=== PATIENT | male | born 1980 | race Caucasian/White ===

== ENCOUNTER 2017-03-24 05:22 | Emergency (ER) | payer OTHER ==
[2017-03-24] MEDS ORDERED: ONDANSETRON ODT 4 MG TABLET TL STA (05:29)
[2017-03-24] MEDS ORDERED: KETOROLAC 60 MG/2 ML VIAL IM STA (05:29)
[2017-03-24] MEDS ORDERED: DEXAMETHASONE 10 MG/ML VIAL PO STA (05:29)
--- NOTE | 2017-03-24 05:41 | ED Physician Documentation ---
PD HPI URI - Stated complaint Stated Complaint: FEVER - Chief complaint Chief Complaint: Abd Pain - History obtained from History obtained from: Patient - History of Present Illness Timing - onset: Yesterday Timing details: Intermittant Associated symptoms: Fever, Chills, Sweats, Nasal congestion, Rhinorrhea, Sore throat, Dry cough Similar symptoms before: No diagnosis Recently seen: Not recently seen - Additional information Additional information: Patient is a 36 year old male with no significant past medical history who is presenting to the emergency department for fever, chills,, and uri symptoms. Patient states that he had a temperature of 100.5. Patient reports that if he tried to get an appointment on [facility] it would take too long and he would get more sick. Patient states that last night he had some sweats and some pain around his kidney area. Review of Systems Constitutional: reports: Fever, Chills, Myalgias Eyes: denies: Discharge, Irritation Ears: reports: Ear pain Nose: reports: Congestion Throat: reports: Sore throat Cardiac: denies: Chest pain / pressure, Palpitations GI: reports: Nausea, Vomiting : denies: Dysuria, Frequency Skin: denies: Rash, Lesions Musculoskeletal: reports: Extremity pain, Joint pain Neurologic: denies: Generalized weakness, Focal weakness, Headache Immunocompromised: denies: Immunocompromised PD PAST MEDICAL HISTORY - Past Medical History Cardiovascular: None Respiratory: None Neuro: None Endocrine/Autoimmune: None GI: None : None HEENT: None Psych: Depression, Post traumatic stress disorder Musculoskeletal: None Derm: None - Past Surgical History Past Surgical History: No - Present Medications Home Medications: Ambulatory Orders Medication Instructions Recorded Confirmed Ondansetron Odt [Zofran] 4 mg TL Q6H PRN #14 tablet 03/24/17 - Allergies Allergies/Adverse Reactions: Allergies Allergy/AdvReac Type Severity Reaction Status Date / Time No Known Drug Allergies Allergy Verified 03/24/17 05:30 - Social History Does the pt smoke?: No Smoking Status: Never smoker Does the pt drink ETOH?: Yes Does the pt have substance abuse?: No - Immunizations Immunizations are current?: Yes - POLST Patient has POLST: Yes PD ED PE NORMAL - General General: Alert and oriented X 3, No acute distress, Well developed/nourished - HEENT HEENT: Atraumatic, PERRL - Neck Neck: Supple, no meningeal sign - Cardiac Cardiac: RRR, No murmur - Respiratory Respiratory: No respiratory distress - Abdomen Abdomen: Soft, Non tender, Non distended - Derm Derm: Normal color, No rash - Extremities Extremities: No deformity - Neuro Neuro: Alert and oriented X 3, No motor deficit, No sensory deficit, Normal speech - Psych Psych: Normal mood PD ED PE EXPANDED - HEENT HEENT: Pharyngeal erythema. No: Tonsillar exudate, Soft palate petecchiae Results - Vitals Vitals: Vital Signs - 24 hr 03/24/17 05:27 Temperature 35.1 C L Heart Rate 65 Respiratory 18 Rate Blood Pressure 138/100 H O2 Saturation 97 Oxygen O2 Source Room air - Labs Labs: Laboratory Tests 03/24/17 05:00 Urine Color YELLOW Urine Clarity CLEAR Urine pH 6.0 Ur Specific [place] >=1.030 H Urine Protein NEGATIVE Urine Glucose (UA) NEGATIVE Urine Ketones NEGATIVE Urine Occult Blood NEGATIVE Urine Nitrite NEGATIVE Urine Bilirubin NEGATIVE Urine Urobilinogen 0.2 (NORMAL) Ur Leukocyte Esterase NEGATIVE Ur Microscopic Review NOT INDICATED Urine Culture Comments NOT INDICATED PD MEDICAL DECISION MAKING - ED course Complexity details: reviewed old records, reviewed results, re-evaluated patient , considered differential, d/w patient ED course: Patient was seen and examined at bedside. Patient was afebrile and non toxic appearing. Patient's urine was collected. patient was treated with toradol, decadron and zofran. Patient's symptoms were likely viral in nature. Patient required no further work up and was stable for discharge with outpatient follow up. Departure - Departure Disposition: 01 Home, Self Care Clinical Impression: Acute viral syndrome Condition: Good Instructions: ED Viral Syndrome Follow-Up: primary,care provider [Other] - Within 1 week Prescriptions: Ondansetron Odt [Zofran] 4 mg TL Q6H PRN #14 tablet PRN Reason: Nausea / Vomiting Comments: Your symptoms are likely viral in nature and self limited meaning it will get better over the next few days. You can take over the counter cold and flu medications and zofran for nausea. The two most important things are rest and oral hydration. You should drink at least 100oz of fluid a day. You should follow up with your doctor if your symptoms persist. You may return to the emergency department for new, worsening or uncontrollable symptoms. Forms: Activity restrictions
[2017-03-24] MEDS ORDERED: CHERRY SYRUP 10 ML UDC PO ONE (05:42)
[2017-03-24 05:45] LABS: BILIRUBIN,URINE NEGATIVE (NEGATIVE); GLUCOSE, URINE (UA) NEGATIVE (NEGATIVE); KETONES,URINE (UA) NEGATIVE (NEGATIVE); LEUKOCYTE ESTERASE, URINE NEGATIVE (NEGATIVE); NITRITE,URINE NEGATIVE (NEGATIVE); OCCULT BLOOD,URINE NEGATIVE (NEGATIVE); PROTEIN,URINE NEGATIVE (NEGATIVE); UROBILINOGEN,URINE 0.2 (NORMAL) E.U./dL (NORMAL)
[2017-03-24 05:46] LABS: CLARITY,URINE CLEAR (CLEAR)
[2017-03-24 06:05] VITALS: BP 139/91
== END 2017-03-24 06:05 | disposition home or self-care (01) ==
LOC: ED 05:22
DX: B34.9 Viral infection, unspecified (principal)
CPT/HCPCS: 81003; 96372; 99283; A9270; Q0162; 81001; 87086

== ENCOUNTER 2017-04-16 06:25 | Emergency (ER) | payer OTHER ==
[2017-04-16 06:31] VITALS: BP 167/94
[2017-04-16] MEDS ORDERED: SODIUM CHLORIDE 0.9% 1,000 ML IV ONE (06:39)
[2017-04-16] MEDS ORDERED: ONDANSETRON 4 MG/2 ML VIAL IVP STA (06:39)
--- NOTE | 2017-04-16 06:44 | ED Physician Documentation ---
PD HPI NVD - History obtained from History obtained from: Patient - History of Present Illness Timing - onset: How many days ago (3) Timing - details: Gradual onset, Still present Associated symptoms: No: Fever, Abdominal pain, Chest pain Contributing factors: No: Sick contact, Bad food, Travel, Recent antibiotics Similar symptoms before: No diagnosis Recently seen: Not recently seen - Stated complaint Stated Complaint: VOMITING/NAUSEA - Chief complaint Chief Complaint: Abd Pain - Additonal information Additional information: Patient is a 36 year old male with no significant past medical history who is presenting to the emergency department for nausea and vomiting. patient states that he has had episodes over the last month where he will get intermittently nauseated and throw up. patient denies any fevers, chills, muscle aches or diarrhea. Patient denies any marijuana use. (Doug Lopes) The patient reports having "heartburn" with associated nausea and episodes of dry heaving. He has noticed his symptoms are worse with supine position, and improved when upright. (Will Gonzalez) Review of Systems Constitutional: denies: Fever, Chills Eyes: denies: Decreased vision Ears: denies: Ear pain, Drainage/discharge Nose: denies: Congestion Throat: denies: Sore throat Cardiac: denies: Chest pain / pressure, Palpitations Respiratory: denies: Cough, Wheezing GI: reports: Nausea, Vomiting. denies: Abdominal Pain, Constipation, Diarrhea : denies: Dysuria, Frequency Skin: denies: Rash, Lesions Musculoskeletal: denies: Neck pain, Back pain Neurologic: denies: Generalized weakness, Focal weakness, Numbness, Headache Immunocompromised: denies: Immunocompromised PD PAST MEDICAL HISTORY - Past Medical History Cardiovascular: None Respiratory: None Neuro: None Endocrine/Autoimmune: None GI: None : None HEENT: None Psych: Depression, Post traumatic stress disorder Musculoskeletal: None Derm: None - Past Surgical History Past Surgical History: No - Social History Does the pt smoke?: No Smoking Status: Never smoker Does the pt drink ETOH?: Yes Does the pt have substance abuse?: No - Immunizations Immunizations are current?: Yes - POLST Patient has POLST: Yes - Present Medications Home Medications: Ambulatory Orders Medication Instructions Recorded Confirmed Ondansetron Odt [Zofran] 4 mg TL Q6H PRN #20 tablet 04/16/17 Promethazine [Phenergan] 25 mg PO Q6H PRN #14 tab 04/16/17 raNITIdine [Zantac] 150 mg PO BID #30 tablet 04/16/17 - Allergies Allergies/Adverse Reactions: Allergies Allergy/AdvReac Type Severity Reaction Status Date / Time No Known Drug Allergies Allergy Verified 04/16/17 06:31 PD ED PE NORMAL - Vitals Vital signs reviewed: Yes - General General: Alert and oriented X 3, No acute distress, Well developed/nourished - HEENT HEENT: Atraumatic, PERRL - Neck Neck: Supple, no meningeal sign, No JVD - Cardiac Cardiac: RRR, No murmur - Respiratory Respiratory: No respiratory distress - Abdomen Abdomen: Soft, Non tender, Non distended - Derm Derm: Normal color, Warm and dry, No rash - Extremities Extremities: No deformity, Normal ROM s pain, No calf tenderness / cord - Neuro Neuro: Alert and oriented X 3, No motor deficit, No sensory deficit, Normal speech - Psych Psych: Normal mood PD ED PE EXPANDED - HEENT HEENT: Dry mucous membranes - Vitals Vitals: Oxygen O2 Source Room air - Labs Labs: Laboratory Tests 04/16/17 04/16/17 06:40 06:40 WBC 4.9 RBC 5.49 Hgb 14.8 Hct 46.1 MCV 84.0 MCH 27.0 MCHC 32.2 RDW 14.2 Plt Count 223 MPV 7.8 Neut # 2.6 Lymph # 1.7 Blanco # 0.4 Eos # 0.3 Baso # 0.1 Absolute Nucleated RBC 0.00 Nucleated RBC % 0.0 Sodium 140 Potassium 4.3 Chloride 103 Carbon Dioxide 25 Anion Gap 12.0 BUN 11 Creatinine 1.0 Estimated GFR (MDRD) 85 L Glucose 107 H Calcium 8.8 Phosphorus 2.7 Magnesium 1.9 Total Bilirubin 0.7 AST 238 H ALT 101 H Alkaline Phosphatase 59 Total Protein 7.6 Albumin 4.3 Globulin 3.3 Albumin/Globulin Ratio 1.3 Lipase 21 L PD MEDICAL DECISION MAKING - ED course Complexity details: reviewed old records, reviewed results, re-evaluated patient , considered differential, d/w patient - ED course ED course: Patient was seen and examined at bedside. IV access was gained and labs were drawn. patient was treated with zofran and a liter bolus. patient was signed over to Dr. Gonzalez pending re-evaluation and disposition. (Doug Lopes) The patient's presentation is most consistent with gastroesophageal reflux disease. His presentation does not suggest pancreatitis, bowel obstruction, and I doubt biliary colic. CBC and chemistry panel are normal except for mildly elevated ALT and AST. Treatment in the emergency department included administration of normal saline 1 L IV and Zofran 4 mg IV on reexamination his abdomen is totally benign. I discussed with him the diagnosis, symptomatic treatment and outpatient follow-up , as well as potentially worrisome signs or symptoms that should prompt reevaluation in the emergency department. He is being discharged with prescriptions for ranitidine, Zofran, and Phenergan. (Will Gonzalez) Departure - Departure Disposition: 01 Home, Self Care Clinical Impression: Vomiting Qualifiers: Vomiting type: unspecified Vomiting Intractability: non-intractable Nausea presence: with nausea Qualified Code(s): R11.2 - Nausea with vomiting, unspecified Gastroesophageal reflux disease Qualifiers: Esophagitis presence: esophagitis presence not specified Qualified Code(s): K21.9 - Gastro-esophageal reflux disease without esophagitis Condition: Stable Instructions: ED GERD, ED Nausea Vomiting Follow-Up: primary,care provider [Other] - Within 3 Days Prescriptions: Ondansetron Odt [Zofran] 4 mg TL Q6H PRN #20 tablet PRN Reason: Nausea / Vomiting Promethazine [Phenergan] 25 mg PO Q6H PRN #14 tab PRN Reason: Nausea / Vomiting raNITIdine [Zantac] 150 mg PO BID #30 tablet Comments: Take ranitidine twice daily as prescribed. You can use liquid antacids, such as Maalox or Mylanta, if you develop recurrent symptoms. You can use Phenergan or Zofran as prescribed as needed for nausea. Follow up with your primary physician within 2 weeks. Call to schedule appointment. Return to the emergency department if you develop increasing abdominal pain, persistent vomiting, or otherwise worsening symptoms. Forms: Activity restrictions Discharge Date/Time: 04/16/17 09:02
[2017-04-16 07:09] LABS: BASOPHILS # (AUTO) 0.1 10^3/uL (0.0-0.1); BASOPHILS % (AUTO) 1.2 %; EOSINOPHILS # (AUTO) 0.3 10^3/uL (0.0-0.7); EOSINOPHILS % (AUTO) 5.1 %; HGB - HEMOGLOBIN 14.8 g/dL (14.0-18.0); LYMPHOCYTES # (AUTO) 1.7 10^3/uL (1.5-3.5); LYMPHOCYTES % (AUTO) 33.9 %; MEAN CORPUSCULAR HGB CONC 32.2 g/dL (32.0-36.0); MEAN PLATELET VOLUME 7.8 fL (7.4-11.4); MONOCYTES # (AUTO) 0.4 10^3/uL (0.0-1.0); MONOCYTES % (AUTO) 7.6 %; NEUTROPHILS # (AUTO) 2.6 10^3/uL (1.5-6.6); NEUTROPHILS % (AUTO) 52.2 %; PLT - PLATELET COUNT 223 10^3/uL (130-450); RED BLOOD COUNT 5.49 10^6/uL (4.70-6.10); RED CELL DISTRIBUTION WIDTH 14.2 % (12.0-15.0); WHITE BLOOD COUNT 4.9 x10^3/uL (4.8-10.8)
[2017-04-16 07:31] LABS: ALBUMIN 4.3 g/dL (3.2-5.5); ALBUMIN/GLOBULIN RATIO 1.3 (1.0-2.2); BILIRUBIN,TOTAL 0.7 mg/dL (0.2-1.0); CALCIUM 8.8 mg/dL (8.5-10.3); MAGNESIUM 1.9 mg/dL (1.7-2.8); PHOSPHORUS 2.7 mg/dL (2.5-4.6); TOTAL PROTEIN 7.6 g/dL (6.7-8.2)
== END 2017-04-16 09:02 | disposition home or self-care (01) ==
LOC: ED 06:25
DX: K21.9 Gastro-esophageal reflux disease without esophagitis (principal); R11.2 Nausea with vomiting, unspecified
CPT/HCPCS: 36415; 80053; 83690; 83735; 84100; 85025; 96374; 99283; 99284

== ENCOUNTER 2017-12-06 20:54 | Emergency (ER) | payer OTHER ==
[2017-12-06] MEDS ORDERED: HYDROcod/ACET 5/325 Prepack 4 PO STA (21:29)
--- NOTE | 2017-12-06 21:30 | ED Physician Documentation ---
PD HPI LOWER EXT INJURY - Stated complaint Stated Complaint: L KNEE PX - Chief complaint Chief Complaint: Ext Problem - History obtained from History obtained from: Patient - History of Present Illness PD HPI LOW EXT INJURY LOCATION: Left (This is a 37-year-old avid runner who developed knee pain after a half marathon recently. Is on the outside and the inside. More recently has had severe pain again without specific injury with swelling and inability to walk and it locking up on him.) Review of Systems Constitutional: reports: Reviewed and negative Cardiac: reports: Reviewed and negative Respiratory: reports: Reviewed and negative PD PAST MEDICAL HISTORY - Past Medical History Past Medical History: Yes Cardiovascular: None Respiratory: None Neuro: None Endocrine/Autoimmune: None GI: None : None HEENT: None Psych: Depression, Post traumatic stress disorder Musculoskeletal: None Derm: None - Past Surgical History Past Surgical History: No - Present Medications Home Medications: Ambulatory Orders Medication Instructions Recorded Confirmed Gabapentin 1 cap PO DAILY 12/06/17 12/06/17 Hydrocodone/Acetaminophen 1 - 2 each PO Q6H PRN #10 tablet 12/06/17 [Hydrocodon-Acetaminophen 5-325] Prazosin HCl 1 cap PO QPM 12/06/17 12/06/17 Trazodone HCl 1 tab PO QPM 12/06/17 12/06/17 Venlafaxine ER [Effexor ER] 150 mg PO DAILY 12/06/17 12/06/17 - Allergies Allergies/Adverse Reactions: Allergies Allergy/AdvReac Type Severity Reaction Status Date / Time No Known Drug Allergies Allergy Verified 12/06/17 21:03 - Social History Does the pt smoke?: No Smoking Status: Never smoker Does the pt drink ETOH?: Yes Does the pt have substance abuse?: No - Immunizations Immunizations are current?: Yes - POLST Patient has POLST: Yes PD ED PE NORMAL - Vitals Vital signs reviewed: Yes - General General: Alert and oriented X 3, No acute distress - Extremities Extremities: Other (Left knee has a moderate effusion. He is tender over the IT band laterally but also the MCL. ACL, PCL, MCL, LCL seem intact but he has a lot of pain with MCL testing.) - Neuro Neuro: Alert and oriented X 3, Normal speech Results - Vitals Vitals: Vital Signs - 24 hr 12/06/17 21:00 Temperature 36.0 C L Heart Rate 91 Respiratory 16 Rate Blood Pressure 140/84 H O2 Saturation 97 Oxygen O2 Source Room air - Rads (name of study) L knee 4v Radiology: EMP read contemporaneously (NAD) PD MEDICAL DECISION MAKING - ED course ED course: Clinically this seems like a combination of some IT band syndrome as well as potentially another internal derangement of the Left knee. Outpatient follow-up was advised. He was placed in a knee immobilizer. - Sepsis Event Vital Signs: Vital Signs - 24 hr 12/06/17 21:00 Temperature 36.0 C L Heart Rate 91 Respiratory 16 Rate Blood Pressure 140/84 H O2 Saturation 97 Oxygen O2 Source Room air Departure - Departure Disposition: Home, Self Care Clinical Impression: IT band syndrome Qualifiers: Laterality: left Qualified Code(s): M76.32 - Iliotibial band syndrome, left leg Medial collateral ligament sprain of knee Qualifiers: Encounter type: initial encounter Laterality: left Qualified Code(s): S83.412A - Sprain of medial collateral ligament of left knee, initial encounter Condition: Good Record reviewed to determine appropriate education?: Yes Instructions: ED Meniscal Injury Knee Poss Prescriptions: Hydrocodone/Acetaminophen [Hydrocodon-Acetaminophen 5-325] 1 - 2 each PO Q6H PRN #10 tablet PRN Reason: pain Comments: Call your doctor to arrange a follow-up appointment, make the next available appointment. In the interim, return anytime if worse or if new symptoms develop. Your blood pressure was elevated today on check into the emergency department. This does not mean that you have hypertension, it is a common phenomenon to come to the emergency department and have elevated blood pressure. I recommend that you see your primary care physician within the week to have it rechecked when you are feeling better.
--- NOTE | 2017-12-06 22:00 | XRAY Report ---
Reason: knee pain Procedure Date: 12/06/2017 Accession Number: [id number] / [id number] Procedure: XR - Knee 4 View LT CPT Code: FULL RESULT: EXAM: LEFT KNEE RADIOGRAPHY EXAM DATE: 12/06/2017 09:47 PM. CLINICAL HISTORY: Knee pain. Unable to bear weight. COMPARISON: None. TECHNIQUE: 4 views. FINDINGS: Bones: Normal. No fractures or bone lesions. Joints: Normal. No effusion. No subluxations. Soft Tissues: Unremarkable. IMPRESSION: Normal knee radiography. [facility]
[2017-12-06 22:16] VITALS: BP 129/69
== END 2017-12-06 22:16 | disposition home or self-care (01) ==
LOC: ED 20:54
DX: S83.412A Sprain of medial collateral ligament of left knee, initial encounter (principal); M76.32 Iliotibial band syndrome, left leg; X50.3XXA Overexertion from repetitive movements, initial encounter; Y93.02 Activity, running
CPT/HCPCS: 99283

== ENCOUNTER 2018-01-05 09:10 | Outpatient (CLI) | payer OTHER ==
--- NOTE | 2018-01-05 18:07 | MRI Report ---
Reason: PAIN IN LEFT KNEE Procedure Date: 01/05/2018 Accession Number: [id number] / [id number] Procedure: MRI - Knee LT W/O CPT Code: FULL RESULT: EXAM: LEFT KNEE MRI WITHOUT CONTRAST EXAM DATE: 01/05/2018 10:39 AM. CLINICAL HISTORY: Left knee pain. Previous injury. COMPARISON: KNEE 4 VIEW LT 12/06/2017 9:37 PM. TECHNIQUE: Multiplanar, multisequence T1-weighted and fluid-sensitive sequences of the knee without contrast. Other: None. FINDINGS: Bones and Articular Cartilage: Small marginal osteophytes at the medial femoral condyle. Small subcortical cyst at the posterior medial aspect of the lateral tibial plateau. There is an approximately 1.4 x 0.4 cm full-thickness articular cartilage defect at the inferior aspect of the lateral patellar facet. Subchondral marrow edema at the lateral patellar facet. Small subcortical cysts and marrow edema at the median ridge of the patella. Grade 2-3 chondromalacia at the superior lateral aspect of the lateral trochlear facet. The lateral trochlear inclination angle is approximately 10 degrees, which is below normal. Slight lateral subluxation of the patella by approximately 3 mm. Focal grade 3-4 chondromalacia and subchondral osteophyte at the posterior aspect of the lateral tibial plateau. Medial Meniscus: The medial meniscus is intact. Lateral Meniscus: The lateral meniscus is intact. Cruciate Ligaments: The anterior and posterior cruciate ligaments are intact. Collateral Ligaments: The medial collateral and lateral collateral ligamentous structures are intact. Tendons: The quadriceps, patellar, semimembranosus, and popliteus tendons are unremarkable. Musculature: No edema or fatty atrophy. Other: No effusion. No popliteal cyst. There is an approximately 4 x 5 x 5 mm loose body within the posterior lateral aspect of the medial compartment. The medial and lateral retinacula are intact. The subcutaneous tissues and fat pads are unremarkable. IMPRESSION: 1. 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 Slight lateral subluxation of the patella by approximately 3 mm. 3. Focal grade 3-4 chondromalacia and subchondral osteophyte at the posterior aspect of the lateral tibial plateau. 4. No ligament or meniscal injury. 5. A 4 x 5 x 5 mm loose body within the posterior lateral aspect of the medial compartment. [facility]
== END 2018-01-05 09:11 | disposition home or self-care (01) ==
LOC: DI 09:10
PROVIDERS: ATTEND Student in an Organized Health Care Education/Training Program
DX: M94.262 Chondromalacia, left knee (principal); S83.012A Lateral subluxation of left patella, initial encounter; M23.42 Loose body in knee, left knee; M25.862 Other specified joint disorders, left knee

== ENCOUNTER 2018-01-19 14:19 | Outpatient (CLI) | payer OTHER ==
--- NOTE | 2018-01-20 11:45 | MRI Report ---
Reason: PAIN IN LEFT FINGERS, WRIST PAIN Procedure Date: 01/19/2018 Accession Number: [id number] / [id number] Procedure: MRI - Wrist LT W/O CPT Code: FULL RESULT: EXAM: LEFT WRIST MRI WITHOUT CONTRAST EXAM DATE: 01/19/2018 02:57 PM. CLINICAL HISTORY: Pain at the left wrist and base of the thumb. COMPARISON: None. TECHNIQUE: Multiplanar, multisequence T1-weighted and fluid-sensitive sequences of the wrist without contrast. Other: None. FINDINGS: Some of the images are degraded due to patient-related motion artifact. Bones: No fractures or subluxations. No marrow edema. No bone lesions. Cartilage: The articular cartilage is unremarkable. The triangular fibrocartilage complex is unremarkable. Ligaments: The scapholunate and lunotriquetral ligaments are intact. The visualized other intrinsic, extrinsic and collateral ligaments are unremarkable. Tendons: The extensor compartment I through and flexor tendons are unremarkable. Musculature: No edema or fatty atrophy. Other: The contents of the carpal tunnel, including the median nerve, are unremarkable. Guyons canal is unremarkable. No ganglion cysts. Small radioscaphoid joint effusion. The subcutaneous tissues are unremarkable. IMPRESSION: 1. Small radioscaphoid joint effusion. 2. Otherwise, unremarkable MRI of the left wrist. [facility] MUSCULOSKELETAL RADIOLOGY SECTION
== END 2018-01-19 14:20 | disposition home or self-care (01) ==
LOC: DI 14:19
PROVIDERS: ATTEND Student in an Organized Health Care Education/Training Program
DX: M25.532 Pain in left wrist (principal); M79.645 Pain in left finger(s); M25.432 Effusion, left wrist

== ENCOUNTER 2018-02-18 06:35 | Day surgery (SDC) | payer OTHER ==
[2018-02-18] MEDS ORDERED: ceFAZolin 2 GM/50 ML 2 GM/50 ML BAG IV ONE (06:44)
[2018-02-18] MEDS ORDERED: LACTATED RINGERS 1,000 ML IV ONE ×2 (07:01→09:33)
--- NOTE | 2018-02-18 07:11 | ANESTHESIA ---
Pre-Anesthesia VS, & Labs - Diagnosis left knee loose body - Procedure Left knee arthroscopy, chondroplasty, loose body removal, plica resection. Vital Signs: Temp Pulse Resp BP Pulse Ox 36.4 C L 62 18 128/77 97 02/18/18 06:43 02/18/18 06:43 02/18/18 06:43 02/18/18 06:43 02/18/18 06:43 Height 6 ft 0.5 in Weight (kg) 98 kg Body Mass Index 27.1 - NPO >8 hours Home Medications and Allergies Home Medications: Ambulatory Orders Multivitamin [Multiple Vitamins] 1 each PO DAILY 02/10/18 Prazosin [Minipress] 6 mg PO QPM 02/10/18 Gabapentin 1 cap PO DAILY 12/06/17 Trazodone HCl 1 tab PO QPM 12/06/17 Venlafaxine ER [Effexor ER] 150 mg PO DAILY 12/06/17 Multivitamin [Multiple Vitamins] 1 each PO DAILY 02/10/18 Prazosin [Minipress] 6 mg PO QPM 02/10/18 Allergies/Adverse Reactions: Allergies Allergy/AdvReac Type Severity Reaction Status Date / Time No Known Drug Allergies Allergy Verified 02/10/18 11:00 Anes History & Medical History - Anesthetic History Anesthesia Complications: reports: No previous complications - Medical History Cardiovascular: reports: None Pulmonary: reports: None Gastrointestinal: reports: None Urinary: reports: None Neuro: reports: None, Other (ptsd) Musculoskeletal: reports: Other (knee pain) Endocrine/Autoimmune: reports: None Blood Disorders: reports: None Skin: reports: None Smoking Status: Never smoker - Surgical History Other Past Surgical History: [place] teeth removal Exam General: Alert Dental: WNL Mouth Openin Fingerbreadth Mallampati classification: II Thyromental Distance: greater than 6 cm Respiratory: Lungs clear Cardiovascular: Regular rate Mental/Cognitive Status: Alert/Oriented X3 Plan Anesthesia Type: General Consent for Procedure(s) Verified and Reviewed: Yes Code Status: Attempt Resuscitation ASA classification: 1-Healthy patient Is this case an emergency?: No
[2018-02-18] MEDS ORDERED: BUPIVACAINE 0.25% PF 30 ML VIAL ONE (07:54)
[2018-02-18] MEDS ORDERED: EPINEPHrine 1 MG/ML AMP ONE (08:03)
[2018-02-18] MEDS ORDERED: ACETAMINOPHEN 1,000 MG/100 ML 100 ML IV ONE (08:38)
[2018-02-18] MEDS ORDERED: MIDAZOLAM 2 MG/2 ML VIAL IVP ONE (08:38)
[2018-02-18] MEDS ORDERED: DEXAMETHASONE 4 MG/ML VIAL IVP ONE (08:38)
[2018-02-18] MEDS ORDERED: LIDOCAINE-MPF 2% 5 ML VIAL IM ONE (08:38)
[2018-02-18] MEDS ORDERED: fentaNYL 100 MCG/2 ML VIAL IVP ONE (08:38)
[2018-02-18] MEDS ORDERED: KETOROLAC 30 MG/ML VIAL IVP ONE (08:38)
[2018-02-18] MEDS ORDERED: PROPOFOL 200 MG/20 ML VIAL IVP ONE (08:38)
[2018-02-18] MEDS ORDERED: ONDANSETRON 4 MG/2 ML VIAL IVP ONE (08:38)
[2018-02-18] MEDS ORDERED: BUPIVACAINE 0.25% PF 30 ML VIAL SUBQ ONE ×2 (08:49)
[2018-02-18] MEDS ORDERED: fentaNYL 100 MCG/2 ML VIAL ONE (10:09)
[2018-02-18] MEDS ORDERED: oxyCODONE 5 MG TABLET PO PRN (10:20)
[2018-02-18] MEDS ORDERED: ONDANSETRON 4 MG/2 ML VIAL IVP PRN (10:20)
[2018-02-18] MEDS ORDERED: HYDROmorphone 1 MG/ML CARPUJECT ONE (10:23)
--- NOTE | 2018-02-18 10:28 | OPERATIVE REPORT ---
Operative Report - General Planned Procedure: Left knee arthroscopy, loose body excision, shaving chondroplasty Pre-Op Diagnosis: Left knee pain, loose body Procedure Performed: Left knee arthroscopy, shaving chondroplasty. medial plica resection, limited intraarticular debridement Post Op Diagnosis: Left knee patellofemoral chondromalacia, medial plica - Procedure Note Primary Surgeon: Dennis Han Anesthesia Technique: General LMA Estimated Blood Loss (mL): 20 - Other Other Information/Narrative: OPERATION PERFORMED: Left knee arthroscopy, exploration, medial plica debridement, shaving chondroplasty patellofemoral joint Left knee: 1. Patella: Medial facet articular surface with minimal degenerative changes, some osteophyte from formation noted on medial edge, Outerbridge grade 3 changes on the central crest, and lateral patellar facet. 2. Trochlea: Outerbridge grade 2-3 changes 3. Medial Compartment: Meniscus intact, root intact, chondral surfaces normal 4. Lateral Compartment: Meniscus intact, root intact with some associated fraying, slight undersurface fraying of the posterior horn of the lateral meniscus, focal chondral defect posterior central tibial plateau, debrided to stable base. Remainder of femoral and tibial cartilage normal 5. ACL and PCL: Normal, normal COMPLICATIONS: None IMPLANTS: None Tourniquet: approximately 66 minutes, 250 mmHg, left thigh Indications for procedure: The patient is a 37-year-old male with long standing history of left knee pain, acutely worse over the last several months. He failed non-operative treatment. Radiographs and MRI demonstarted significant patellofemoral arthritis, what appears to be a loose body in the posterior lateral section of the medial joint compartment. The risks, benefits, and alternatives were discussed. Risks included pain, bleeding, infection, damage to nearby structures, lack of symptom relief, implant complications, stiffness, need for further surgeries, DVT, PE, stroke, and even . He signed a written consent form. Procedure Details: The patient was met in the pre-operative hold area. Persistence of symptoms was verified and consent was verified. The patient verified the surgical site as the left knee. The patient then met with anesthesia and was brought back to the operating room. The patient was placed supine on the operating table. A general anesthetic was administered and LMA was placed. A well-padded tourniquet was placed on the left thigh. The left lower extremity was then prepped and draped in the usual sterile fashion. A surgical timeout was then performed. The correct patient, the correct procedure, and the correct surgical site were confirmed by everyone in the room. Perioperative antibiotics had been administered. After surgical timeout and administration of antibiotics the Escmarch was used to exsanguinate the left lower extremity and the tourniquet was raised. An 11 blade scalpel was used to make an anteromedial and anterolateral arthroscopic portal. The arthroscope was introduced into the knee and a diagnostic arthroscopy was performed with the above-stated findings. A 30 and a 70 degree scope were used in the medial lateral lateral modified Gillquist intervals to inspect the posterior portions of both the medial and lateral compartments. No loose body was seen in either the medial or lateral compartment, the medial or lateral gutter, the anterior joint line or the suprapatellar pouch. An extensive search was conducted for the previously imaged loose body, however a loose body was not found. Satisfied that the knee had been thoroughly explored, we turned our attention to the patellar chondroplasty. A superolateral portal was made under direct visualization using needle localization. The arthroscopic sucker shaver was inserted into the knee and a chondroplasty of the patella and trochlear was performed. The cartilage was debrided to a stable rim. The arthroscopic sucker shaver was then used to debride back a prominent medial plica. The arthroscopic instruments were then removed from the knee. The portals were closed with 3-0 Monocryl. 0.25% Marcaine was injected into the periarticular soft tissues. The incisions were dressed with Xeroform gauze, 4x4 gauze, an ABD, Webril, and Michele wrap and ZOE stocking. The tourniquet was lowered. The surgical drapes were removed. The patient was awoken from anesthesia, extubated, transferred to the hospital bed, and taken to the PACU for recovery in good condition. Postoperative plan: 1. Discharge home from the same day surgery facility once the patient has met discharge criteria. 2. Advance weightbearing as tolerated, range of motion as tolerated, and wean from crutches as tolerated as gait normalizes. 3. Return to clinic in 5-7 days for wound check. 4. Allow advancement of activities as tolerated with full clearance for all activities anticipated in 6-8 weeks postoperatively.
[2018-02-18] MEDS ORDERED: HYDROmorphone 0.5 MG/0.5 ML SYRINGE ONE (10:40)
[2018-02-18] MEDS ORDERED: HYDROcod/ACETAM 5/325 MG TABLET ONE (11:14)
[2018-02-18 11:36] VITALS: BP 132/68
== END 2018-02-18 06:36 | disposition home or self-care (01) ==
LOC: SDS 06:35
PROVIDERS: ATTEND Orthopaedic Surgery
PROC: 0SBD4ZZ Excision of Left Knee Joint, Percutaneous Endoscopic Approach (ICD-10-PCS; principal; 2018-02-18 08:00)
DX: M22.42 Chondromalacia patellae, left knee (principal); M17.12 Unilateral primary osteoarthritis, left knee; F41.9 Anxiety disorder, unspecified; F32.9 Major depressive disorder, single episode, unspecified; F43.10 Post-traumatic stress disorder, unspecified; J30.9 Allergic rhinitis, unspecified; F10.21 Alcohol dependence, in remission; Z79.82 Long term (current) use of aspirin
CPT/HCPCS: 29877; A9270; J0131; J0690; J1170; J7120

== ENCOUNTER 2018-05-22 08:25 | Emergency (ER) | payer OTHER ==
[2018-05-22 08:33] VITALS: BP 148/77
--- NOTE | 2018-05-22 08:41 | ED Physician Documentation ---
History of Present Illness - Stated complaint Stated Complaint: BODY RASH - Chief complaint Chief Complaint: Wound - History obtained from History obtained from: Patient - History of Present Illness Timing: Last night Pain level max: 2 - Additonal information Additional information: Patient is a previously healthy 37-year-old male presenting with diffuse erythematous, itchy rash over his body that began last night. Patient has obtained some improvement with [id number] Benadryl. Patient has no known exposures and denies recent camping, environmental exposures, changes in detergents or lotions, new foods, new medications, or known allergies. Patient denies blistering, weeping, or pain associated with rash. Patient also denies any tongue swelling, oral swelling, difficulty swallowing, difficulty breathing. No other improving or worsening factors noted. Review of Systems Constitutional: denies: Fever Throat: denies: Reviewed and negative Respiratory: denies: Dyspnea, Cough GI: denies: Vomiting Skin: reports: Rash PD PAST MEDICAL HISTORY - Past Medical History Cardiovascular: None Respiratory: None Neuro: None, Other (ptsd) Endocrine/Autoimmune: None GI: None, GERD : None HEENT: None Psych: Depression, Anxiety, Post traumatic stress disorder Musculoskeletal: Other (knee pain) Derm: None - Past Surgical History Past Surgical History: No - Present Medications Home Medications: Ambulatory Orders Medication Instructions Recorded Confirmed RX: Gabapentin 1 cap PO DAILY 12/06/17 05/22/18 RX: Trazodone HCl 1 tab PO QPM 12/06/17 05/22/18 Venlafaxine ER [Effexor ER] 150 mg PO DAILY 12/06/17 05/22/18 Multivitamin [Multiple Vitamins] 1 each PO DAILY 02/10/18 05/22/18 Prazosin [Minipress] 6 mg PO QPM 02/10/18 05/22/18 RX: Omeprazole 20 mg PO DAILY 05/22/18 05/22/18 predniSONE [Prednisone 21-tab dose 5 mg PO UD #1 each 05/22/18 pack] - Allergies Allergies/Adverse Reactions: Allergies Allergy/AdvReac Type Severity Reaction Status Date / Time No Known Drug Allergies Allergy Verified 05/22/18 08:33 - Social History Does the pt smoke?: No Smoking Status: Never smoker Does the pt drink ETOH?: Yes Does the pt have substance abuse?: No - Immunizations Immunizations are current?: Yes - POLST Patient has POLST: Yes PD ED PE NORMAL - General General: Alert and oriented X 3, No acute distress, Well developed/nourished - HEENT HEENT: Atraumatic, EOMI, Ears normal, Moist mucous membranes, Pharynx benign, Dentition benign, Other (No oral or lip swelling present) - Neck Neck: Supple, no meningeal sign - Cardiac Cardiac: RRR, No murmur - Respiratory Respiratory: No respiratory distress - Abdomen Abdomen: Soft, Non tender, Non distended - Derm Derm: Normal color, Warm and dry, Other (Non-raised, papular, nonpainful, blanching erythematous rash diffusely over arms, legs, and torso with no mucous membrane involvement) - Extremities Extremities: No deformity, No tenderness to palpate - Neuro Neuro: Alert and oriented X 3, No motor deficit, No sensory deficit - Psych Psych: Normal mood, Normal affect Results - Vitals Vitals: Vital Signs - 24 hr 05/22/18 08:31 Temperature 35.7 C L Heart Rate 55 L Respiratory 16 Rate Blood Pressure 148/77 H O2 Saturation 99 Oxygen O2 Source Room air PD MEDICAL DECISION MAKING - ED course Complexity details: considered differential, d/w patient ED course: Most concerning for allergic reaction, urticaria, and other rash given patient's sudden onset of diffuse, itchy rash. Did not see signs or indications of more concerning or infectious rash such as Wheeler-Deven's, TEN, Lyme, syphillis or other bullous or purulent rash.Do not have high suspicion for anaphylaxis as patient has no respiratory complaints.Not the patient requires respiratory interventions or epinephrine at this time. Will provide famotidine, Benadryl, and steroids in ED and discussed use of medications at home, as well as other supportive cares, return precautions, and appropriate follow-up. Otherwise, feel that patient is safe to discharge home. Patient agrees and is comfortable with discharge plan. Departure - Departure Disposition: 01 Home, Self Care Clinical Impression: Allergic reaction Qualifiers: Encounter type: initial encounter Qualified Code(s): T78.40XA - Allergy, unspecified, initial encounter Condition: Good Instructions: ED Allergic Reaction General Other Follow-Up: GERARDO COLE MD [Primary Care Provider] - Within 3 Days Prescriptions: predniSONE [Prednisone 21-tab dose pack] 5 mg PO UD #1 each Comments: Please take steroids as prescribed to help with allergic reaction and rash. Also recommend using Benadryl as instructed on packaging to assist with itching, as well as [id number] steroid or Benadryl creams topically as needed. Please follow-up with primary care physician in next 2-3 days and return to ED sooner if expands worsening symptoms or other concerns. Discharge Date/Time: 05/22/18 09:38
[2018-05-22] MEDS ORDERED: predniSONE 20 MG TABLET PO STA (09:10)
[2018-05-22] MEDS ORDERED: diphenhydrAMINE 25 MG CAPSULE PO STA (09:10)
[2018-05-22] MEDS ORDERED: FAMOTIDINE 20 MG TABLET PO STA (09:10)
== END 2018-05-22 09:38 | disposition home or self-care (01) ==
LOC: ED 08:25
DX: T78.40XA Allergy, unspecified, initial encounter (principal); X58.XXXA Exposure to other specified factors, initial encounter; R21 Rash and other nonspecific skin eruption
CPT/HCPCS: 99283; A9270; J7512

== ENCOUNTER 2018-06-03 07:31 | Day surgery (SDC) | payer OTHER ==
[~2018-06-03 07:31] MED LIST: BUPIVACAINE 0.25% PF 10 ML VIAL ONE; EPINEPHrine 1 MG/ML AMP ONE
[2018-06-03] MEDS ORDERED: LACTATED RINGERS 1,000 ML IV ONE ×2 (07:40→10:38)
[2018-06-03] MEDS ORDERED: ceFAZolin 2 GM/50 ML 2 GM/50 ML BAG IV ONE (07:48)
--- NOTE | 2018-06-03 08:00 | ANESTHESIA ---
Pre-Anesthesia VS, & Labs - Diagnosis right knee patellar chondromalacia, meniscus tear - Procedure right knee arthroscopy, chondroplasty, meniscal debridement Vital Signs: Temp Pulse Resp BP Pulse Ox 36.1 C L 64 12 126/84 H 98 06/03/18 07:41 06/03/18 07:41 06/03/18 07:41 06/03/18 07:41 06/03/18 07:41 Height 6 ft 1 in Weight (kg) 99.6 kg Body Mass Index 29.4 - NPO >8 hours Home Medications and Allergies Gabapentin 1 cap PO DAILY 12/06/17 Trazodone HCl 1 tab PO QPM 12/06/17 Venlafaxine ER [Effexor ER] 150 mg PO DAILY 12/06/17 Multivitamin [Multiple Vitamins] 1 each PO DAILY 02/10/18 Prazosin [Minipress] 6 mg PO QPM 02/10/18 Omeprazole 20 mg PO DAILY 05/22/18 Allergies/Adverse Reactions: Allergies Allergy/AdvReac Type Severity Reaction Status Date / Time No Known Drug Allergies Allergy Verified 05/31/18 10:43 Anes History & Medical History - Anesthetic History Anesthesia Complications: reports: No previous complications - Medical History Cardiovascular: reports: None Pulmonary: reports: Sleep apnea (pending polysomnography, patient snores.) Gastrointestinal: reports: GERD (controlled with medication) Urinary: reports: None Neuro: reports: None, Other (ptsd) Musculoskeletal: reports: Other Endocrine/Autoimmune: reports: None Blood Disorders: reports: None Skin: reports: None Smoking Status: Former smoker (quit 10years ago) Psychosocial: reports: Anxiety, Other (PTSD) - Surgical History Orthopedic: Arthroscopic surgery Exam General: Alert, Oriented x3, Cooperative, No acute distress Dental: WNL Mouth Openin Fingerbreadth Neck Mobility: Normal Mallampati classification: I Respiratory: Lungs clear, Normal breath sounds, No respiratory distress, No accessory muscle use Cardiovascular: Regular rate, Normal S1, Normal S2, No murmurs Mental/Cognitive Status: Alert/Oriented X3, Normal for patient Plan Anesthesia Type: General Consent for Procedure(s) Verified and Reviewed: Yes Code Status: Attempt Resuscitation ASA classification: 2-Mild systemic disease Is this case an emergency?: No
[2018-06-03] MEDS ORDERED: EPINEPHrine 1 MG/ML AMP IVP ONE (09:49)
[2018-06-03] MEDS ORDERED: BUPIVACAINE 0.25% PF 30 ML VIAL SUBQ ONE ×2 (09:49→10:51)
[2018-06-03] MEDS ORDERED: fentaNYL 100 MCG/2 ML VIAL IVP ONE (11:19)
[2018-06-03] MEDS ORDERED: HYDROmorphone 1 MG/ML CARPUJECT IVP ONE (11:19)
[2018-06-03] MEDS ORDERED: LIDOCAINE-MPF 2% 5 ML VIAL IM ONE (11:19)
[2018-06-03] MEDS ORDERED: KETOROLAC 30 MG/ML VIAL IVP ONE (11:19)
[2018-06-03] MEDS ORDERED: DEXAMETHASONE 4 MG/ML VIAL IVP ONE (11:19)
[2018-06-03] MEDS ORDERED: MIDAZOLAM 2 MG/2 ML VIAL IVP ONE (11:19)
[2018-06-03] MEDS ORDERED: PROPOFOL 200 MG/20 ML VIAL IVP ONE (11:19)
[2018-06-03] MEDS ORDERED: ONDANSETRON 4 MG/2 ML VIAL IVP ONE (11:19)
[2018-06-03] MEDS ORDERED: oxyCODONE 5 MG TABLET PO PRN (11:23)
[2018-06-03] MEDS ORDERED: ONDANSETRON 4 MG/2 ML VIAL IVP PRN (11:23)
--- NOTE | 2018-06-03 11:31 | OPERATIVE REPORT ---
Operative Report - General Procedure Date: 06/03/18 Planned Procedure: Right knee arthroscopy, shaving chondroplasty, possible meniscal debridement Pre-Op Diagnosis: Right knee patellofemoral chondromalacia Procedure Performed: Right knee arthroscopy, patellofemoral shaving chondroplasty, medial plica debridement, limited intra-articular debridement Post Op Diagnosis: Right knee patellofemoral chondromalacia, Prominent medial plica - Procedure Note Primary Surgeon: NIURKA MORRISON Anesthesia Technique: General LMA Estimated Blood Loss (mL): 5 - Other Other Information/Narrative: Indications for surgery: 37-year-old male with a history of right knee pain, refractory to nonoperative m easures. Physical exam and x-ray and MRI consistent with significant with patellofemoral chondromalacia. We had a lengthy discussion about the limitations of right knee arthroscopy with chondroplasty in the setting. The risks, benefits, and alternatives were discussed. Risks include pain, bleeding, infection, damage to nearby structures and cartilage, lack of symptom relief, need for further surgery, DVT, PE, stroke, and . Written consent was obtained. Right knee: 1. Patella: Diffuse grade III chondromalacia, approximately 25 mm x 15 mm. Focal areas of grade IV chondromalacia predominantly of the lateral patellar facet 2. Trochlea: Grade 2, and some focal grade 3 and 4 changes of the trochlea. 3. Medial Compartment: Meniscal root intact, no meniscal tear, the anterior horn of the medial meniscus is extruded over the anterior border of the tibia, but stable to palpation. There are anterior tibial osteophytes, and some grade 2 changes of the medial femoral condyle 4. Lateral Compartment: Slight fraying of the meniscal root, but firmly adherent, no meniscal tear observed, normal excursion about the popliteal hiatus. Grade I chondromalacia tibia and lateral femoral condyle 5. ACL and PCL: ACL appears in continuity, albeit with slight laxity, the intercondylar notch soft tissues were taken down to examine the insertion of the ACL on the lateral wall of the intercondylar notch, and found to be intact. PCL appears intact. COMPLICATIONS: none IMPLANTS: None Tourniquet: approximately 64 minutes, 250 mmHg, right thigh Procedure Details: The patient was met in the pre-operative hold area. We reviewed risks, benefits, and alternatives to surgery. Consent was signed. The patient verified the surgical site as the right knee. The patient then met with anesthesia and was brought back to the operating room. The patient was placed supine on the operating table. A general anesthetic was administered and LMA was placed. A well-padded tourniquet was placed on the right thigh. The right lower extremity was then prepped and draped in the usual sterile fashion. A surgical timeout was then performed. The correct patient, the correct procedure, and the correct surgical site were confirmed by everyone in the room. Perioperative antibiotics had been administered. After surgical timeout and administration of antibiotics the Escmarch was used to exsanguinate the right lower extremity and the tourniquet was raised. An 11 blade scalpel was used to make an anteromedial and anterolateral arthroscopic portal. The arthroscope was introduced into the knee and a diagnostic arthroscopy was performed with the above-stated findings. A spinal needle was used to make a superior anterolateral portal under direct visualization. The arthroscopic sucker shaver was inserted into the knee and a chondroplasty of the patella and trochlea was performed. Ring curettes were used to remove unstable chondral flaps. The cartilage was debrided to a stable rim. After debridement and chondroplasty the the size of the trochlear lesion was 15 millimeters medial lateral x 10 mm from proximal to distal. The patellar lesion was approximately 25 mm medial lateral and 15 mm proximal to distal. A prominent medial plica was also resected. The arthroscopic instruments were then removed from the knee. The portals were closed with 3-0 Monocryl. 30 mL's of 0.25% Marcaine plain was injected into the periarticular soft tissues. The incisions were dressed with Xeroform gauze, 4 x 4's, and ABD. The tourniquet was lowered and a ZOE hose was used to secure the dressings in place. The surgical drapes were removed. The patient was awoken from anesthesia, extubated, transferred to the hospital bed. Following removal of the LMA, per anesthesia the patient had approximately a 10-15 minutes of laryngeal spasm which appeared to resolve without issue. The patient was then taken to the PACU for recovery in good condition. Postoperative plan: 1. Discharge home from the same day surgery facility once the patient has met discharge criteria. 2. Advance weightbearing as tolerated, range of motion as tolerated, and wean from crutches as tolerated. 3. Return to clinic in 1-2 weeks for wound check. 4. Allow advancement of activities as tolerated with full clearance for all activities anticipated in 6-8 weeks postoperatively. Indications for surgery: 37-year-old male with a history of right knee pain, refractory to nonoperative measures. Physical exam and x-ray and MRI consistent with significant with patellofemoral chondromalacia. We had a lengthy discussion about the limitations of right knee arthroscopy with chondroplasty in the setting. The risks, benefits, and alternatives were discussed. Risks include pain, bleeding, infection, damage to nearby structures and cartilage, lack of symptom relief, need for further surgery, DVT, PE, stroke, and . Written consent was obtained. Right knee: 1. Patella: Diffuse grade III chondromalacia, approximately 25 mm x 15 mm. Focal areas of grade IV chondromalacia predominantly of the lateral patellar facet 2. Trochlea: Grade 2, and some focal grade 3 and 4 changes (10mm x 15mm)of the trochlea. 3. Medial Compartment: Meniscal root intact, no meniscal tear, the anterior horn of the medial meniscus is extruded over the anterior border of the tibia, but stable to palpation. There are anterior tibial osteophytes, and some grade 2 changes of the medial femoral condyle 4. Lateral Compartment: Slight fraying of the meniscal root, but firmly adherent, no meniscal tear observed, normal excursion about the popliteal hiatus. Grade I chondromalacia tibia and lateral femoral condyle 5. ACL and PCL: ACL appears in continuity, albeit with slight laxity, the intercondylar notch soft tissues were taken down to examine the insertion of the ACL on the lateral wall of the intercondylar notch, and found to be intact. PCL appears intact. COMPLICATIONS: none IMPLANTS: None Tourniquet: approximately 64 minutes, 250 mmHg, right thigh Procedure Details: The patient was met in the pre-operative hold area. We reviewed risks, benefits, and alternatives to surgery. Consent was signed. The patient verified the surgical site as the right knee. The patient then met with anesthesia and was brought back to the operating room. The patient was placed supine on the operating table. A general anesthetic was administered and LMA was placed. A well-padded tourniquet was placed on the right thigh. The right lower extremity was then prepped and draped in the usual sterile fashion. A surgical timeout was then performed. The correct patient, the correct procedure, and the correct surgical site were confirmed by everyone in the room. Perioperative antibiotics had been administered. After surgical timeout and administration of antibiotics the Escmarch was used to exsanguinate the right lower extremity and the tourniquet was raised. An 11 blade scalpel was used to make an anteromedial and anterolateral arthroscopic portal. The arthroscope was introduced into the knee and a diagnostic arthroscopy was performed with the above-stated findings. A spinal needle was used to make a superior anterolateral portal under direct visualization. The arthroscopic sucker shaver was inserted into the knee and a chondroplasty of the patella and trochlea was performed. Ring curettes were used to remove unstable chondral flaps. The cartilage was debrided to a stable rim. After debridement and chondroplasty the the size of the trochlear lesion was 15 millimeters medial lateral x 10 mm from proximal to distal. The patellar lesion was approximately 25 mm medial lateral and 15 mm proximal to distal. A prominent medial plica was also resected. The arthroscopic instruments were then removed from the knee. The portals were closed with 3-0 Monocryl. 30 mL's of 0.25% Marcaine plain was injected into the periarticular soft tissues. The incisions were dressed with Xeroform gauze, 4 x 4's, and ABD. The tourniquet was lowered and a ZOE hose was used to secure the dressings in place. The surgical drapes were removed. The patient was awoken from anesthesia, extubated, transferred to the hospital bed. Following removal of the LMA, per anesthesia the patient had approximately a 10-15 minutes of laryngeal spasm which appeared to resolve without issue. The patient was then taken to the PACU for recovery in good condition. Postoperative plan: 1. Discharge home from the same day surgery facility once the patient has met discharge criteria. 2. Advance weightbearing as tolerated, range of motion as tolerated, and wean from crutches as tolerated. 3. Return to clinic in 1-2 weeks for wound check. 4. Allow advancement of activities as tolerated with full clearance for all activities anticipated in 6-8 weeks postoperatively.
[2018-06-03] MEDS ORDERED: ACETAMINOPHEN 1,000 MG/100 ML 100 ML IV ONE (11:36)
[2018-06-03 12:15] VITALS: BP 155/89
== END 2018-06-03 07:32 | disposition home or self-care (01) ==
LOC: SDS 07:31
PROVIDERS: ATTEND Orthopaedic Surgery
PROC: 0SBC4ZZ Excision of Right Knee Joint, Percutaneous Endoscopic Approach (ICD-10-PCS; principal; 2018-06-03 09:15)
DX: M22.41 Chondromalacia patellae, right knee (principal); M25.761 Osteophyte, right knee; M67.51 Plica syndrome, right knee; G47.30 Sleep apnea, unspecified; K21.9 Gastro-esophageal reflux disease without esophagitis; F41.9 Anxiety disorder, unspecified; F32.9 Major depressive disorder, single episode, unspecified; F43.10 Post-traumatic stress disorder, unspecified; J30.9 Allergic rhinitis, unspecified; F10.20 Alcohol dependence, uncomplicated; H52.209 Unspecified astigmatism, unspecified eye; G47.00 Insomnia, unspecified; Z87.891 Personal history of nicotine dependence
CPT/HCPCS: 29877; A9270; J0131; J0690; J7120

== ENCOUNTER 2018-11-29 07:17 | Emergency (ER) | payer OTHER ==
[2018-11-29 07:31] VITALS: BP 143/77
[2018-11-29] MEDS ORDERED: CHERRY SYRUP 10 ML UDC PO ONE (07:40)
[2018-11-29] MEDS ORDERED: DEXAMETHASONE 10 MG/ML VIAL PO STA (07:40)
[2018-11-29] MEDS ORDERED: ACETAMINOPHEN 500 MG TABLET PO STA (07:40)
--- NOTE | 2018-11-29 07:45 | ED Physician Documentation ---
PD HPI UPPER EXT INJURY - Stated complaint Stated Complaint: SHOULDER PX - Chief complaint Chief Complaint: Ext Problem - History obtained from History obtained from: Patient - History of Present Illness Location: Right, Shoulder Type of injury: Other (has had pain in shoulder for 6 months and has seen Ortho and had PT and eval with MRI. Has noted increased pain). No: Fall, Twist Timing - onset: How many days ago (has gotten worse in the past few days) Timing - duration: Days Timing - details: Gradual onset, Still present (markedly painful with ROM that unable to use arm in usual activity.) Improved by: Immobilization. No: Meds (taking diclofenac for it.) Worsened by: Moving. No: Palpating Associated symptoms: No: Weakness, Numbness Contributing factors: Work related (possibly, as does lifting and use of it at work). No: Anticoagulated, Prior ortho surgery Similar symptoms before: Diagnosis (tendonitis presumedly. Had MRI of shoulder several months ago without any tears or acute process. Had some arthritic changes at AC joint.) Recently seen: Not recently seen (tried appt with PMD but referred to ER.) Review of Systems Constitutional: denies: Fever, Chills Skin: denies: Rash, Lesions Musculoskeletal: denies: Extremity swelling Neurologic: denies: Focal weakness, Numbness PD PAST MEDICAL HISTORY - Past Medical History Cardiovascular: None Respiratory: Sleep apnea (pending polysomnography, patient snores.) Neuro: None, Other (ptsd) Endocrine/Autoimmune: None GI: GERD (controlled with medication) : None HEENT: None Psych: Depression, Anxiety, Post traumatic stress disorder Musculoskeletal: Other Derm: None - Past Surgical History Past Surgical History: No Ortho: Arthroscopic surgery - Present Medications Home Medications: Ambulatory Orders Medication Instructions Recorded Confirmed Gabapentin 1 cap PO DAILY 12/06/17 11/29/18 Trazodone HCl 1 tab PO QPM 12/06/17 11/29/18 Venlafaxine ER [Effexor ER] 150 mg PO DAILY 12/06/17 11/29/18 Multivitamin [Multiple Vitamins] 1 each PO DAILY 02/10/18 11/29/18 Prazosin [Minipress] 6 mg PO QPM 02/10/18 11/29/18 Omeprazole 20 mg PO DAILY 05/22/18 11/29/18 Hydrocodone/Acetaminophen 1 each PO Q6H PRN #20 tablet 11/29/18 [Hydrocodon-Acetaminophen 5-325] dexAMETHasone [Decadron] 4 mg PO DAILY #7 tablet 11/29/18 - Allergies Allergies/Adverse Reactions: Allergies Allergy/AdvReac Type Severity Reaction Status Date / Time No Known Drug Allergies Allergy Verified 11/29/18 07:31 - Social History Does the pt smoke?: No Smoking Status: Former smoker (quit 10years ago) Does the pt drink ETOH?: Yes Does the pt have substance abuse?: No - Immunizations Immunizations are current?: Yes - POLST Patient has POLST: Yes PD ED PE NORMAL - Vitals Vital signs reviewed: Yes - General General: Alert and oriented X 3, No acute distress (holding right arm guarded to side. Painful for lifting and rotational movements. ), Well developed/nourished - Neck Neck: Supple, no meningeal sign, No bony TTP, No adenopathy - Cardiac Cardiac: RRR, No murmur - Respiratory Respiratory: Clear bilaterally - Derm Derm: Normal color, Warm and dry - Extremities Extremities: Other (right shoulder with some tenderness anteriorly. Not tender at biceps head. No effusion. Not tender at AC joint area. ) - Neuro Neuro: No motor deficit, No sensory deficit Results - Vitals Vitals: Vital Signs - 24 hr 11/29/18 07:28 Temperature 36.4 C L Heart Rate 83 Respiratory 16 Rate Blood Pressure 143/77 H O2 Saturation 96 Oxygen O2 Source Room air PD MEDICAL DECISION MAKING - ED course Complexity details: reviewed old records (MRI shoulder from earlier in the year), considered differential (presume some tendonitis rotator cuff without acute tear. ), d/w patient Departure - Departure Disposition: 01 Home, Self Care Clinical Impression: Right shoulder tendonitis Condition: Stable Record reviewed to determine appropriate education?: Yes Follow-Up: GERARDO COLE MD [Primary Care Provider] - Prescriptions: dexAMETHasone [Decadron] 4 mg PO DAILY #7 tablet Hydrocodone/Acetaminophen [Hydrocodon-Acetaminophen 5-325] 1 each PO Q6H PRN #20 tablet PRN Reason: pain Comments: Presume he has some irritation or inflammation of the tendons around the shoulder. Use a sling much of the time through the day for the next several days to reduce irritation of the shoulder muscles and provide comfort. However you do want to stiffen up so periodically to gentle dependent range of motion without any overhead push pull nor lifting. Do this several times to the days but does not stiffen up. Continue your diclofenac. Add Decadron steroid anti-inflammatory daily for a week. To that add Tylenol or hydrocodone as needed for pain. Forms: Activity restrictions Discharge Date/Time: 11/29/18 07:57
== END 2018-11-29 07:57 | disposition home or self-care (01) ==
LOC: ED 07:17
DX: M75.91 Shoulder lesion, unspecified, right shoulder (principal); Z87.891 Personal history of nicotine dependence
CPT/HCPCS: 99282; 99284; A9270

== ENCOUNTER 2018-12-22 17:25 | Outpatient (CLI) | payer OTHER ==
--- NOTE | 2018-12-23 16:36 | MRI Report ---
Reason: PAIN IN LEFT LOWER LEG Procedure Date: 12/22/2018 Accession Number: [id number] / [id number] Procedure: MRI - Lower Leg (Tib-Fib) LT W/O CPT Code: 94331 FULL RESULT: EXAM: LEFT CALF/TIBIA MRI WITHOUT CONTRAST EXAM DATE: 12/22/2018 06:41 PM. CLINICAL HISTORY: PAIN IN LEFT LOWER LEG. COMPARISON: None. TECHNIQUE: Multiplanar, multisequence T1-weighted and fluid-sensitive sequences of the calf/tibia without contrast. Other: None. FINDINGS: Bones: No fractures or subluxations. No marrow edema. No bone lesions. Joint Spaces: Visualized portions of the ankle and knee joints are unremarkable. Tendons: Where visualized, the Achilles and plantaris tendons are intact. Musculature: No edema or fatty atrophy. Other: The subcutaneous tissues are unremarkable. IMPRESSION: No MRI abnormalities in the calf/tibia. RADIA
== END 2018-12-22 17:26 | disposition home or self-care (01) ==
LOC: DI 17:25
PROVIDERS: ATTEND Orthopaedic Surgery
DX: M79.662 Pain in left lower leg (principal)

== ENCOUNTER 2018-12-24 14:08 | Emergency (ER) | payer OTHER ==
--- NOTE | 2018-12-24 15:34 | ED Physician Documentation ---
PD HPI BACK INJURY - Stated complaint Stated Complaint: BACK PX - History obtained from History obtained from: Patient - History of Present Illness Location: Left, Lower Type of injury: Twist (he was working out, with some abd exercising and felt onset of pop and pain to low back, with pain to left gluteal and back of leg. Some mild numbness that area. No weakness of the leg.). No: Fall, Blunt / blow Where injury occurred: Other (gym) Timing - onset: Today Timing - details: Abrupt onset, Still present Quality: Pain, Spasm, Sharp Improved by: No: Rest, Meds (ibuprofen) Worsened by: Moving, Palpating Similar symptoms before: Diagnosis (has HNP L5 with radicular symptoms to right in the past.) Recently seen: Not recently seen Review of Systems Constitutional: denies: Fever, Chills, Myalgias Skin: denies: Rash, Lesions Neurologic: reports: Numbness (left gluteal down back of leg, mild). denies: Focal weakness PD PAST MEDICAL HISTORY - Past Medical History Cardiovascular: None Respiratory: Sleep apnea (pending polysomnography, patient snores.) Neuro: None, Other (ptsd) Endocrine/Autoimmune: None GI: GERD (controlled with medication) : None HEENT: None Psych: Depression, Anxiety, Post traumatic stress disorder Musculoskeletal: Other Derm: None - Past Surgical History Past Surgical History: No Ortho: Arthroscopic surgery - Present Medications Home Medications: Ambulatory Orders Medication Instructions Recorded Confirmed Gabapentin 1 cap PO DAILY 12/06/17 11/29/18 Trazodone HCl 1 tab PO QPM 12/06/17 11/29/18 Venlafaxine ER [Effexor ER] 150 mg PO DAILY 12/06/17 11/29/18 Multivitamin [Multiple Vitamins] 1 each PO DAILY 02/10/18 11/29/18 Prazosin [Minipress] 6 mg PO QPM 02/10/18 11/29/18 Omeprazole 20 mg PO DAILY 05/22/18 11/29/18 Hydrocodone/Acetaminophen 1 each PO Q6H PRN #20 tablet 11/29/18 [Hydrocodon-Acetaminophen 5-325] dexAMETHasone [Decadron] 4 mg PO DAILY #7 tablet 11/29/18 Ibuprofen 600 mg PO TID PRN #25 tablet 12/24/18 Oxycodone HCl/Acetaminophen 1 - 2 each PO Q6H PRN #20 tablet 12/24/18 [Percocet 5-325 mg Tablet] Tizanidine HCl 4 mg PO TID PRN #25 capsule 12/24/18 dexAMETHasone [Decadron] 4 mg PO DAILY #5 tablet 12/24/18 - Allergies Allergies/Adverse Reactions: Allergies Allergy/AdvReac Type Severity Reaction Status Date / Time No Known Drug Allergies Allergy Verified 11/29/18 07:31 - Social History Does the pt smoke?: No Smoking Status: Former smoker (quit 10years ago) Does the pt drink ETOH?: Yes Does the pt have substance abuse?: No - Immunizations Immunizations are current?: Yes - POLST Patient has POLST: Yes PD ED PE NORMAL - Vitals Vital signs reviewed: Yes - General General: Alert and oriented X 3, Well developed/nourished, Other (appears uncomfortable) - Abdomen Abdomen: Soft, Non tender - Back Back: No CVA TTP, Other (lower lumbar with tenderness left of midline. No redness nor rash. Normal reflexes in knees and good motor in legs. Normal sensation to the touch in legs. ) - Derm Derm: Normal color, Warm and dry - Extremities Extremities: No tenderness to palpate, No edema, No calf tenderness / cord Results - Vitals Vitals: Vital Signs - 24 hr 12/24/18 12/24/18 14:12 16:42 Temperature 36.9 C 36.5 C Heart Rate 70 58 L Respiratory 16 18 Rate Blood Pressure 143/79 H 136/86 H O2 Saturation 100 96 Oxygen O2 Source Room air PD MEDICAL DECISION MAKING - ED course Complexity details: considered differential (prior L5 symptoms right leg with disc injections by back surgeon Dr. So in [place]. Now with pain and similar symptoms to left. No caudal symptoms. ), d/w patient Departure - Departure Disposition: 01 Home, Self Care Clinical Impression: Low back pain Qualifiers: Chronicity: acute Back pain laterality: left Sciatica presence: with sciatica Sciatica laterality: sciatica of left side Qualified Code(s): M54.42 - Lumbago with sciatica, left side Condition: Stable Record reviewed to determine appropriate education?: Yes Instructions: ED Sciatica Follow-Up: GERARDO COLE MD [Primary Care Provider] - Jagjit Barrera MD [Physician No Access] - Prescriptions: dexAMETHasone [Decadron] 4 mg PO DAILY #5 tablet Ibuprofen 600 mg PO TID PRN #25 tablet PRN Reason: Pain Oxycodone HCl/Acetaminophen [Percocet 5-325 mg Tablet] 1 - 2 each PO Q6H PRN #20 tablet PRN Reason: pain Tizanidine HCl 4 mg PO TID PRN #25 capsule PRN Reason: Spasms Comments: Heat and gentle stretching for the low back to reduce spasms. He can try some ice on it later this evening in case there is some swelling acutely. Anti-inflammatories such as ibuprofen 3 times a day. Decadron also daily for the next several days. A lot of this may be spasms so add tizanidine muscle relaxant times a day to help with that. To this add Tylenol or pain medicine if needed. Rest off work for the next 2 to 3 days. Follow-up with your primary care or more particularly your back specialist this coming week, call Wednesday for an appointment. Forms: Activity restrictions Discharge Date/Time: 12/24/18 16:59
[2018-12-24] MEDS ORDERED: ACETAMINOPHEN 325 MG TABLET PO STA (15:59)
[2018-12-24] MEDS ORDERED: HYDROmorphone 2 MG/ML VIAL IM STA (15:59)
[2018-12-24] MEDS ORDERED: KETOROLAC 30 MG/ML VIAL IM STA (15:59)
[2018-12-24] MEDS ORDERED: METHOCARBAMOL 500 MG TABLET PO STA (16:00)
[2018-12-24 16:43] VITALS: BP 136/86
== END 2018-12-24 16:59 | disposition home or self-care (01) ==
LOC: ED 14:08
DX: M54.42 Lumbago with sciatica, left side (principal); Z87.891 Personal history of nicotine dependence
CPT/HCPCS: 96372; 99284; A9270; J1170

== ENCOUNTER 2021-07-10 09:40 | Emergency (ER) | payer OTHER ==
[2021-07-10 09:49] VITALS: BP 149/103
--- NOTE | 2021-07-10 09:56 | ED Physician Documentation ---
PD HPI LOWER EXT INJURY - Stated complaint Stated Complaint: RT KNEE PX - Chief complaint Chief Complaint: Trauma Ext - History obtained from History obtained from: Patient - Additional information Additional information: 40-year-old has had trouble with both knees in the past including debridements and cartilage issues of both knees. Slipped yesterday and developed diffuse right knee pain. No other injuries. No pain medication here as he is driving and declines NSAIDs. He is on a longstanding NSAID, not sure which 1. Review of Systems Constitutional: reports: Reviewed and negative Eyes: reports: Reviewed and negative Ears: reports: Reviewed and negative Nose: reports: Reviewed and negative PD PAST MEDICAL HISTORY - Past Medical History Cardiovascular: None Respiratory: Sleep apnea (pending polysomnography, patient snores.) Neuro: None, Other (ptsd) Endocrine/Autoimmune: None GI: GERD (controlled with medication) : None HEENT: None Psych: Depression, Anxiety, Post traumatic stress disorder Musculoskeletal: Other Derm: None - Past Surgical History Past Surgical History: No Ortho: Arthroscopic surgery - Present Medications Home Medications: Ambulatory Orders Medication Instructions Recorded Confirmed Gabapentin 1 cap PO DAILY 12/06/17 11/29/18 Trazodone HCl 1 tab PO QPM 12/06/17 11/29/18 Venlafaxine ER [Effexor ER] 150 mg PO DAILY 12/06/17 11/29/18 Multivitamin [Multiple Vitamins] 1 each PO DAILY 02/10/18 11/29/18 Prazosin [Minipress] 6 mg PO QPM 02/10/18 11/29/18 Omeprazole 20 mg PO DAILY 05/22/18 11/29/18 Hydrocodone/Acetaminophen 1 each PO Q6H PRN #20 tablet 11/29/18 [Hydrocodon-Acetaminophen 5-325] dexAMETHasone [Decadron] 4 mg PO DAILY #7 tablet 11/29/18 Ibuprofen 600 mg PO TID PRN #25 tablet 12/24/18 Oxycodone HCl/Acetaminophen 1 - 2 each PO Q6H PRN #20 tablet 12/24/18 [Percocet 5-325 mg Tablet] Tizanidine HCl 4 mg PO TID PRN #25 capsule 12/24/18 dexAMETHasone [Decadron] 4 mg PO DAILY #5 tablet 12/24/18 HYDROcod/ACETAM 5/325 [[place] 5/325] 1 - 2 tab PO Q6H PRN #15 tablet 07/10/21 - Allergies Allergies/Adverse Reactions: Allergies Allergy/AdvReac Type Severity Reaction Status Date / Time meloxicam AdvReac Unknown Verified 07/10/21 10:20 - Social History Does the pt smoke?: No Smoking Status: Former smoker (quit 10years ago) Does the pt drink ETOH?: Yes Does the pt have substance abuse?: No - Immunizations Immunizations are current?: Yes - POLST Patient has POLST: Yes PD ED PE NORMAL - Vitals Vital signs reviewed: Yes - General General: Alert and oriented X 3, No acute distress - Derm Derm: Normal color, Warm and dry - Extremities Extremities: Other (There is a small effusion of the right knee and an area of swelling superolateral to the right knee. There is diffuse tenderness of the knee, without focality. ACL, PCL, LCL, MCL testing is intact and painless. Positive grind testing.) - Neuro Neuro: Alert and oriented X 3, Normal speech Results - Vitals Vitals: Vital Signs - 24 hr 07/10/21 09:46 Temperature 36.3 C L Heart Rate 73 Respiratory 16 Rate Blood Pressure 149/103 H O2 Saturation 96 Oxygen O2 Source Room air PD MEDICAL DECISION MAKING - ED course ED course: He presents with a knee strain with an effusion and a history of internal derangements of the right knee. X-ray shows the effusion but no other abnormalities. Given the exam I presume a meniscal injury and he is placed in a knee immobilizer and discussed need for follow-up with Ortho. I am prescribing a short course of short-acting opioid pain medication for this patient. I have reviewed the patients [employer] and no concerning findings were noted. I have discussed that the opioids are for short term therapy only, and will not be refilled from the ED. Departure - Departure Disposition: 01 Home, Self Care Clinical Impression: Internal derangement of right knee Condition: Good Record reviewed to determine appropriate education?: Yes Instructions: ED Meniscal Injury Knee Poss Prescriptions: HYDROcod/ACETAM 5/325 [[place] 5/325] 1 - 2 tab PO Q6H PRN #15 tablet PRN Reason: Pain Comments: I sent your prescription to [facility] in [place]. [place] return for new or worsening symptoms. Wear the knee splint when you are up and around, but you do not need to wear it when at rest or sleeping or bathing. I am prescribing a short course of narcotic pain medication for you. These are potentially dangerous and addictive medications that should be used carefully. These medications may constipate you. Take an [id number] stool softener (docusate) twice daily with plenty of water while taking these medications. If you go 24 hours without a bowel movement, take [id number] miralax, per package instructions. Do not drink or drive while taking these medications. If you received narcotic or sedating medications while in the emergency department, do not drive for 24 hours. Store this medication in a safe, secure place and out of reach of children. It is a violation of federal law to give or sell this medication to another person or to use in a manner other than prescribed. The ED will not refill narcotic prescriptions, including prescriptions lost or stolen. To dispose of unwanted medications: 1. [facility] at [address] in [place] has a medication drop box. They accept prescription medications (in pill form) Wednesday through Wednesday 9:00 a.m. to 5:00 p.m. 2. The [facility] [employer] accepts prescription medications (in pill form only) for disposal year round. Call for more information. 3. Contact the [facility] for the next [facility] sponsored prescription drug collection event. , [phone], or [phone]; Note that many narcotic pain relievers also contain Tylenol/acetaminophen. Please ensure that your total dose of acetaminophen from all sources does not exceed 3 g (3000 mg) per day.
--- NOTE | 2021-07-10 10:15 | XRAY Report ---
PROCEDURE: Knee 4 View RT INDICATIONS: knee pain/injury TECHNIQUE: 4 views of the right knee(s) were acquired. COMPARISON: None. FINDINGS: Bones: No fractures or dislocations. No suspicious bony lesions. Mild tricompartmental periarticul ar osteophyte formation. Lateral patellar subluxation. Soft tissues: Moderate joint effusion. No suspicious soft tissue calcifications. IMPRESSION: 1. Osteoarthritis. 2. Knee joint effusion. 3. No acute fracture. No osseous lesion. If symptoms and/or clinical suspicion for pathology continue , further assessment with repeat plain films, or advanced imaging (e.g., CT, MRI, or bone scan) is re commended for further assessment. Reviewed by: Nadiya Allen MD on 07/10/2021 10:14 AM PDT Approved by: Nadiya Allen MD on 07/10/2021 10:14 AM PDT Station ID: [id number]
== END 2021-07-10 10:37 | disposition home or self-care (01) ==
LOC: ED 09:40
DX: M23.91 Unspecified internal derangement of right knee (principal); Z87.891 Personal history of nicotine dependence
CPT/HCPCS: 99283

== ENCOUNTER 2022-03-27 11:40 | Outpatient (CLI) | payer OTHER | END 2022-03-27 11:41 | disposition critical access hospital (66) | LOC: EMS 11:40 | DX: R07.89 Other chest pain (principal); R53.83 Other fatigue; R06.02 Shortness of breath | CPT/HCPCS: A0425; A0429 ==